=== PATIENT | male | born 1985 | race Caucasian/White ===

== ENCOUNTER 2016-05-19 19:18 | Emergency (ER) | payer SELFPAY ==
[2016-05-19 19:51] VITALS: BP 140/80; PULSE 74; RESP 18; TEMP 97.6
--- NOTE | 2016-05-19 20:07 | ED ---
URI HPI - General Chief Complaint: Upper Respiratory Infection Stated Complaint: congestion Time Seen by Provider: 05/19/16 19:51 Source: patient Mode of arrival: ambulatory Limitations: no limitations - History of Present Illness Initial Comments: Patient is a 30-year-old male presenting to the emergency department with complaints of cough, rhinorrhea, and nasal congestion started last night. Patient denies fevers, chills, shortness of breath, chest pain, or abdominal pain. Patient states she did have 2 episodes of diarrhea. Patient denies recent illness or sick contacts. Patient states he knows he has the common cold but needs a note for work because he called in sick today. No treatment prior to arrival. MD Complaint: cough Onset/Timin -: days(s) Severity: mild Improves With: rest Worsens With: nothing Associated Symptoms: rhinorrhea, nasal congestion, diarrhea - Related Data Home Medications Medication Instructions Recorded Confirmed No Known Home Medications [No 05/19/16 05/19/16 Known Home Medications] Allergies Allergy/AdvReac Type Severity Reaction Status Date / Time No Known Allergies Allergy Verified 05/19/16 19:51 Review of Systems ROS Statement: Those systems with pertinent positive or pertinent negative responses have been documented in the HPI. ROS Other: All systems not noted in ROS Statement are negative. Past Medical History Past Medical History: Asthma Additional Past Medical History / Comment(s): back pain History of Any Multi-Drug Resistant Organisms: None Reported Past Surgical History: No Surgical Hx Reported Past Psychological History: No Psychological Hx Reported Smoking Status: Never smoker Past Alcohol Use History: None Reported Past Drug Use History: None Reported General Exam Limitations: no limitations General appearance: alert, in no apparent distress Head exam: Present: atraumatic, normocephalic, normal inspection Eye exam: Present: normal appearance, PERRL, EOMI. Absent: scleral icterus, conjunctival injection, periorbital swelling ENT exam: Present: normal oropharynx, mucous membranes moist, TM's normal bilaterally, normal external ear exam Expanded Ear exam: Present: normal external inspection Mouth exam: Present: normal external inspection, tongue normal. Absent: drooling, trismus, muffled voice, tongue elevation Teeth exam: Present: normal inspection Throat exam: normal inspection. negative: tonsillar erythema, tonsillomegaly, tonsillar exudate, R peritonsillar mass, L peritonsillar mass Neck exam: Present: normal inspection, full ROM. Absent: tenderness, meningismus, lymphadenopathy Respiratory exam: Present: normal lung sounds bilaterally. Absent: respiratory distress, wheezes, rales, rhonchi, stridor Cardiovascular Exam: Present: regular rate, normal rhythm, normal heart sounds. Absent: systolic murmur, diastolic murmur, rubs, gallop, clicks GI/Abdominal exam: Present: soft, normal bowel sounds. Absent: distended, tenderness, guarding, rebound, rigid Extremities exam: Present: normal inspection, full ROM, normal capillary refill. Absent: tenderness, pedal edema, joint swelling, calf tenderness Neurological exam: Present: alert, oriented X3, CN II-XII intact, normal gait Psychiatric exam: Present: normal affect, normal mood Skin exam: Present: warm, dry, intact, normal color. Absent: rash Course Vital Signs 05/19/16 19:50 Temperature 97.6 F Pulse Rate 74 Respiratory 18 Rate Blood Pressure 140/80 O2 Sat by Pulse 98 Oximetry Medical Decision Making - Medical Decision Making Patient presents with symptoms of upper respiratory infection suspect secondary to the common cold. Patient offered chest x-ray but declined. Patient instructed to continue conservative treatment. Patient is in agreement with treatment plan. Return parameters and discharge instructions reviewed. Disposition Clinical Impression: Common cold Disposition: HOME SELF-CARE Condition: Good Instructions: Upper Respiratory Infection (ED) Additional Instructions: Increase water intake. May use Motrin or Tylenol for discomfort. Follow-up with primary care physician as needed. Patient attends emergency department if symptoms do not improve or get worse. Time of Disposition: 20:06
== END 2016-05-19 20:13 | disposition home or self-care (01) ==
LOC: EC 19:18
DX: J00 Acute nasopharyngitis [common cold] (principal)
CPT/HCPCS: 99283